=== PATIENT | female | born 1995 | race Caucasian/White ===

== ENCOUNTER 2019-09-30 18:16 | Outpatient (CLI) | payer BC ==
[~2019-09-30] VITALS: Ht 170.2 cm; Wt 80.9 kg
--- NOTE | 2019-09-30 18:23 | NUR ---
Arrived to unit ambulates self accompanied by mother. Pt c/o "contractions" Wt obtained and to room 315. Gowned and urine sample obtained. To bed and oriented to room, call light and surroundings. Plan of care reviewed with pt and mother.
[2019-09-30] MEDS ORDERED: PREN-37 PO (18:30)
[2019-09-30 18:37] VITALS: BP 126/77
[2019-09-30 18:45] VITALS: BP 126/77
--- NOTE | 2019-09-30 18:47 | NUR ---
AMNIO SWAB NEGATIVE.
--- NOTE | 2019-09-30 18:49 | NUR ---
SVE BY SANTOS CARLOS. 2 CM/50%/-3 NO PRESENTING PART NOTED.
--- NOTE | 2019-09-30 18:56 | NUR ---
BEDSIDE U/S PERFORMED WITH HEAD UNDER MOM'S RIGHT RIBCAGE. CONFIRMED BY 2ND RN Raya LEÓN.
--- NOTE | 2019-09-30 19:06 | NUR ---
DR. DWYER NOTIFIED OF PT'S ARRIVAL, C/O CTXS AND CTX PATTERN, REACTIVE FHR TRACING, CERVICAL EXAM OF 2CM/50% AND BREECH PRESENTATION. ORDERS RECEIVED.
[2019-09-30] MEDS ORDERED: TERBUTALINE INJ 1 MG/ML (BRETHINE) AMP ONE (19:07)
[2019-09-30 19:08] VITALS: BP 125/75
[2019-09-30] MEDS ORDERED: LACTATED RINGERS 1,000 ML IV SCH (19:15)
[2019-09-30] MEDS ORDERED: TERBUTALINE INJ 1 MG/ML (BRETHINE) AMP SC ONE ×2 (19:15→21:00)
--- NOTE | 2019-09-30 19:17 | NUR ---
BRETHINE 0.25 MG SUBQ IN LEFT UPPER ARM. SITE CLEAR.
--- NOTE | 2019-09-30 19:20 | NUR ---
UP TO THE BATHROOM PER PT REQUEST BEFORE IV STARTED.
--- NOTE | 2019-09-30 19:30 | NUR ---
REPORT GIVEN TO GENE HEARN RN.
[2019-09-30 19:44] VITALS: BP 126/77
--- NOTE | 2019-09-30 21:53 | NUR ---
D/C instructions given & explained, reassurance given, pt. verbalized understanding & signed. Copy of D/C to pt. Instructed pt. to call in am to sched to see tomorrow per 's orders. Pt. left [facility] ambulatory escorted by mother, to home via private vehicle.
--- NOTE | 2019-10-01 08:27 | Physician Query-Final Dx ---
VELIA LOZA 10/01/19 0827: Clinic Account Progress/Dx Physician Query: Please give diagnosis Please include # weeks gestation Date of Service Sep 30, 2019 at 18:16 ANN DWYER DO 10/01/19 0931: Clinic Account Progress/Dx Physician Query: Please give diagnosis DIAGNOSIS: Diagnosis Intrauterine at 35 weeks 2. Threatened Labor 3. Breech Presentation VELIA LOZA Oct 01, 2019 08:27 ANN DWYER DO Oct 01, 2019 09:31
== END 2019-09-30 21:53 | disposition home or self-care (01) ==
LOC: WSo 18:16 → LDRP 18:17 → WSo 21:53
PROVIDERS: ATTEND Obstetrics & Gynecology
DX: O47.03 False labor before 37 completed weeks of gestation, third trimester (principal); O32.1XX0 Maternal care for breech presentation, not applicable or unspecified; Z3A.35 35 weeks gestation of pregnancy
CPT/HCPCS: 96360; 96372; 99213

== ENCOUNTER → 2019-10-21 | Outpatient (CLI) | payer BC ==
[~2019-10-21] VITALS: Ht 167 cm; Wt 77.0 kg
[~2019-10-21] MED LIST: ACET-93 PO; DCS100C PO; IBUP-1780 PO; OXYC5TAB96 PO; PREN-37 PO
== END | disposition home or self-care (01) ==
LOC: PREOP 06:03
PROVIDERS: ATTEND Obstetrics & Gynecology
DX: Z01.818 Encounter for other preprocedural examination (principal)

== ENCOUNTER 2019-10-23 17:50 | Inpatient (IN) | payer BC ==
[2019-10-23] VITALS (8 sets, daily range): BP systolic 111–131; BP diastolic 68–81
[~2019-10-23] VITALS: Ht 167.7 cm; Wt 80.2 kg
--- NOTE | 2019-10-23 17:40 | NUR ---
JM HACKETT presented to unit from ED, accompanied by Significant Other, with c/o CONTRACTIONS. JM HACKETT weighed, gowned, voided, and to bed. EFHM and TOCO applied, VS taken. JM HACKETT oriented to bed controls, call light, TV, heat, and A/C controls.
[~2019-10-23 17:50] MED LIST changes: -ACET-93 PO; -DCS100C PO; -IBUP-1780 PO; -OXYC5TAB96 PO
--- NOTE | 2019-10-23 18:05 | NUR ---
Dr. Alford notified of patient's arrival, complaints, and exam. New orders received.
[2019-10-23] MEDS: LACTATED RINGERS 1,000 ML IV PRN ×2 (18:15→19:09)
[2019-10-23] MEDS ORDERED: OXYTOCIN PRE-MIX DRIP 1,000 ML IV ONE (18:24)
[2019-10-23] MEDS ORDERED: fentaNYL INJECTION 100 MCG/2 ML AMP ONE (18:25)
[2019-10-23 18:27] LABS: BASOPHILS % (AUTO) 0 % (0-10); EOSINOPHILS # (AUTO) 0.1 10^3/uL (0.0-0.3); EOSINOPHILS % (AUTO) 0 % (0-10); HEMATOCRIT 35 % (35-52); HEMOGLOBIN 12.1 G/DL (11.5-16.0); LYMPHOCYTES # (AUTO) 2.9 X 10^3 (1.0-4.0); LYMPHOCYTES % (AUTO) 21 % (12-44); MEAN CORPUSCULAR HEMOGLOBIN 30 PG (25-34); MEAN CORPUSCULAR HGB CONC 34 G/DL (32-36); MEAN CORPUSCULAR VOLUME 88 FL (80-99); MEAN PLATELET VOLUME 10.2 FL (7.4-10.4); MONOCYTES # (AUTO) 1.1 X 10^3 (0.0-1.0); MONOCYTES % (AUTO) 8 % (0-12); NEUTROPHILS # (AUTO) 9.9 X 10^3 (1.8-7.8); NEUTROPHILS % (AUTO) 71 % (42-75); PLATELET COUNT 340 10^3/uL (130-400); RED CELL DISTRIBUTION WIDTH 12.5 % (10.0-14.5); WHITE BLOOD COUNT 13.9 10^3/uL (4.3-11.0)
[2019-10-23] MEDS ORDERED: METOCLOPRAMIDE INJ 10 MG/2 ML (REGLAN) IV ONE (18:30)
[2019-10-23] MEDS ORDERED: ceFAZolin 2 GM IV Premixed 50 ML IV ONE (18:30)
[2019-10-23] MEDS ORDERED: CITRIC ACID/SOB CIT (BICITRA) 30 ML UDC PO ONE (18:30)
[2019-10-23] MEDS ORDERED: FAMOTIDINE 20MG/2ML IV (PEPCID) IV ONE (18:30)
[2019-10-23] MEDS ORDERED: CATHETER FLUSH 10 ML SYR IV PRN (18:30)
[2019-10-23] MEDS ORDERED: ROPIVACAINE 5MG/ML 30ML VIAL ONE (18:55)
--- OUTSIDE RECORDS SUMMARY | 2019-10-23 19:11 | XMS REPORT | Continuity of Care Document ---
Author Organization Unknown Address Unknown Phone Unavailable Allergies Active Description Code Type Severity Reaction Onset Reported/Identified Relationship to Patient Clinical Status Yes No Known Drug Allergies [id number] Drug Allergy Unknown N/A 09/30/2019 Medications There is no data. Problems Date Dx Coded Attending Type Code Diagnosis Diagnosed By 10/01/2019 SEALS DO, ANN E Ot O32.1XX0 MATERNAL CARE FOR BREECH PRESENTATION, U 10/01/2019 SEALS DO, ANN E Ot O47.0 3 FALSE LABOR BEFORE 37 COMPLETED WEEKS OF 10/01/2019 SEALS DO, ANN E Ot Z3A.3 5 35 WEEKS GESTATION OF 10/06/2019 SEALS DO, ANN E Ot O32.1XX0 MATERNAL CARE FOR BREECH PRESENTATION, U 10/06/2019 SEALS DO, ANN E Ot O47.0 3 FALSE LABOR BEFORE 37 COMPLETED WEEKS OF 10/06/2019 SEALS DO, ANN E Ot Z3A.3 5 35 WEEKS GESTATION OF Procedures There is no data. Results Test Result Range BLOOD TPYE/RH FACTOR - 03/12/19 11:05 ABO GROUP A NRG RH TYPE RH(D) POSITIVE NRG ANTIBODY SCREEN - 03/12/19 11:05 ANTIBODY SCREEN, RBC W/REFL ID, TITER AND AG NO ANTIBODIES DETECTED NRG SYPHILIS (RPR W/ REFLEX CONFIRMATION) - 03/12/19 11:05 RPR (DX) W/REFL TITER AND CONFIRMATORY TESTING NON-REACTIVE NON-REACTIVE HEP B SURFACE ANTIGEN - 03/12/19 11:05 HEPATITIS B SURFACE ANTIGEN NON-REACTIVE NON-REACTIVE RUBELLA IMMUNE STATUS - 03/12/19 11:05 RUBELLA ANTIBODY (IGG) 2.65 index NRG SUREPATH PAP RFX HPV mRNA E6/E7 - 16:06 CLINICAL INFORMATION: NRG LMP: NRG PREV. PAP: NRG PREV. BX: NRG SOURCE: Vagina NRG STATEMENT OF ADEQUACY: NRG INTERPRETATION/RESULT: NRG HOME ORGANIZER: NRG REVIEW HOME ORGANIZER: NRG COMMENT NRG QUAD SCREEN - 06/04/19 10:35 Maternal Weight 165 lbs NRG Est'd Date of Delivery 11/01/2019 NRG SOPHIA Determined by LMP NRG Mother's Ethnic Origin NRG Number of Fetuses 1 NRG Insulin Depend Diabetic NO NRG Repeat Specimen NO NRG Hx Of Neural Tube Defects NO NRG Prev Down Synd NO NRG Donor Egg NO NRG Donor Age: Egg Retrieval NOT GIVEN NRG INTERPRETATION: NRG Risk for ONTD 1 IN 4033 NRG Age Risk Down Syndrome 1 IN 1130 NRG BERTA Down Syndrome Risk <1 IN 5000 NRG BERTA Trisomy 18 Risk <1 IN 5000 NRG AFP, Serum 58.8 ng/mL NRG AFP MoM 1.36 NRG Estriol, Free 1.91 ng/mL NRG Estriol MoM 1.42 NRG hCG, Serum 13.34 IU/mL NRG hCG MoM 0.63 NRG Inhibin A, Dimeric 245 pg/mL NRG Inhibin A MoM 1.51 NRG COMMENTS: NRG COMMENT NRG Calc'd Gestational Age 18.6 weeks NRG Cigarette smoker NOT GIVEN NRG GLUCOSE KENDAL 1 HOUR - 08/14/19 09:56 GLUCOSE, POSTPRANDIAL/ 1 HOUR 122 mg/dL See Note: CBC - 08/14/19 09:56 WHITE BLOOD CELL COUNT 12.1 Thousand/uL 3.8-10.8 RED BLOOD CELL COUNT 3.69 Million/uL 3.8 0-5.10 HEMOGLOBIN 11.8 g/dL 11.7-15.5 HEMATOCRIT 33.7 % 35.0-45.0 MCV 91.3 fL 80.0-100.0 MCH 32.0 pg 27.0-33.0 MCHC 35.0 g/dL 32.0-36.0 RDW 11.9 % 11.0-15.0 PLATELET COUNT 290 Thousand/uL 140-400 MPV 10.3 fL 7.5-12.5 ABSOLUTE NEUTROPHILS 8942 cells/uL 1500- 7800 ABSOLUTE LYMPHOCYTES 2432 cells/uL 850-3 900 ABSOLUTE MONOCYTES 617 cells/uL 200-950 ABSOLUTE EOSINOPHILS 85 cells/uL 15-500 ABSOLUTE BASOPHILS 24 cells/uL 0-200 NEUTROPHILS 73.9 % NRG LYMPHOCYTES 20.1 % NRG MONOCYTES 5.1 % NRG EOSINOPHILS 0.7 % NRG BASOPHILS 0.2 % NRG SYPHILIS (RPR W/ REFLEX CONFIRMATION) - 08/14/19 09:56 RPR (DX) W/REFL TITER AND CONFIRMATORY TESTING NON-REACTIVE NON-REACTIVE CULTURE, GROUP B STREP (VAGINAL) - 09/30 09:59 STREPTOCOCCUS, GROUP B CULTURE SEE NOTE NRG Complete blood count (CBC) with automate d white blood cell (WBC) differential - 10/23/19 18:15 Blood leukocytes automated count (number/volume) 13.9 10*3/uL 4.3-11.0 Blood erythrocytes automated count (number/volume) 4.03 10*6/uL 4.35-5.85 Venous blood hemoglobin measurement (mass/volume) 12.1 g/dL 11.5-16.0 Blood hematocrit (volume fraction) 35 % 35-52 Automated erythrocyte mean corpuscular volume 88 [ foz_us] 80-99 Automated erythrocyte mean corpuscular h emoglobin (mass per erythrocyte) 30 pg 25-34 Automated erythrocyte mean corpuscular h emoglobin concentration measurement (mass/volume) 34 g/dL 32-36 Automated erythrocyte distribution width ratio 12. 5 % 10.0- 14.5 Automated blood platelet count (count/volume) 340 10*3/uL 130-400 Automated blood platelet mean volume measurement 10.2 [foz_us] 7.4-10.4 Automated blood neutrophils/100 leukocytes 71 % 42-75 Automated blood lymphocytes/100 leukocytes 21 % 12-44 Blood monocytes/100 leukocytes 8 % 0-12 Automated blood eosinophils/100 leukocytes 0 % 0-10 Automated blood basophils/100 leukocytes 0 % 0-10 Blood neutrophils automated count (number/volume) 9.9 10*3 1.8-7.8 Blood lymphocytes automated count (number/volume) 2.9 10*3 1.0-4.0 Blood monocytes automated count (number/volume) 1. 1 10*3 0.0-1.0 Automated eosinophil count 0.1 10*3/uL 0 .0-0.3 Automated blood basophil count (count/volume) 0.0 10*3/uL 0.0-0.1 Encounters ACCT No. Visit Date/Time Discharge Status Pt. Type Provider Facility Loc./Unit Complaint [id number] 10/22/2019 10:30:00 ACT Outpatient [facility] [id number] 10/01/2019 10:00:00 Document Registration [id number] 08/14/2019 09:15:00 Document Registration [id number] 06/04/2019 10:30:00 Document Registration [id number] 03/12/2019 10:45:00 Document Registration [id number] 09/30/2019 18:16:00 21:53:00 DIS Outpatient SEALS DO ANN E Via [facility] WSo CONTRACTIONS [id number] 10/27/2019 07:30:00 P EN Preadmit SEALS DO ANN E C -SECTION [id number] 10/23/2019 18:22:[address] Inpatient SEALS DO ANN E [facility] PCS BREECH IN LABOR [id number] 10/21/2019 06:03:[address] Outpatient SEALS DO ANN E Via [facility] PREOP
--- NOTE | 2019-10-23 19:16 | History & Physical-OB/GYN ---
History of Present Illness History of Present Illness Reason for visit/HPI Ms. Gonzalez, A0, at 39 2/7 weeks presents for onset of labor with a Breech Presentation Date of Admission Oct 23, 2019 at 18:22 Date Seen by a Provider: Oct 23, 2019 Time Seen by a Provider: 19:05 I consulted on this patient on 10/23/19 19:11 Attending Physician Sky Alford DO Admitting Physician Sky Alford DO Consult Allergies and Home Medications Allergies Coded Allergies: No Known Drug Allergies (Unverified , 09/30/19) Home Medications Vit/Iron Fumarate/FA 1 Each Tablet, 1 EACH PO DAILY, (Reported) Patient Home Medication List Home Medication List Reviewed: Yes Past Sznsyuc-Megfxd-Iqylig Hx Patient Social History Marrital Status: Number of Children: 2 Number of living children: 2 Employed/Student: employed Alcohol Use: Denies Use Recreational Drug Use: No Type Used: Cigarettes 2nd Hand Smoke Exposure: No Recent Hopitalizations: No Seasonal Allergies Seasonal Allergies: No Surgeries Yes (EARLOBE CYST) Respiratory No Cardiovascular No Neurological No Reproductive System Sexually Transmitted Disease: No HIV/AIDS: No Female Reproductive Disorders: Denies Genitourinary No Gastrointestinal Yes Gastroesophageal Reflux Musculoskeletal No Endocrine History of Endocrine Disorders: No HEENT History of HEENT Disorders: Yes (GLASSES) Loss of Vision: Denies Hearing Impairment: Denies Cancer No Psychosocial History of Psychiatric Problem: No Integumentary History of Skin or Integumenta: No Blood Transfusions History of Blood Disorders: No Adverse Reaction to a Blood Tr: No (N/A) Review of Systems Constitutional: see HPI Physical Exam Physical Exam Vital Signs Capillary Refill : Labs Laboratory Tests 10/23/19 18:15: White Blood Count 13.9H, Red Blood Count 4.03L, Hemoglobin 12.1, Hematocrit 35, Mean Corpuscular Volume 88, Mean Corpuscular Hemoglobin 30, Mean Corpuscular Hemoglobin Concent 34, Red Cell Distribution Width 12.5, Platelet Count 340, Mean Platelet Volume 10.2, Neutrophils (%) (Auto) 71, Lymphocytes (%) (Auto) 21, Monocytes (%) (Auto) 8, Eosinophils (%) (Auto) 0, Basophils (%) (Auto) 0, Wily trophils # (Auto) 9.9H, Lymphocytes # (Auto) 2.9, Monocytes # (Auto) 1.1H, Eosinophils # (Auto) 0.1, Basophils # (Auto) 0.0 General Appearance: No Apparent Distress, WD/WN Respiratory: Chest Non Tender, Lungs Clear, Normal Breath Sounds Cardiovascular: Regular Rate, Rhythm, No Murmur Abdominal: normal bowel sounds, non tender Gynecology/General: No urethral discharge, No lesions Labia: WNL Vagina: WNL Cervix: WNL Cervix Mass: soft Cervix OS: open (4 cm) Uterus: WNL, Enlarged (Gravid) Extremity: Normal Inspection, Non Tender, No Calf Tenderness Assessment/Plan Assessment and Plan Intrauterine at 39 2/7 weeks 2. Breech Presentation Plan: Proceed with an immediate . Procedure and its associated risks were discussed. All questions were answered. Admission Diagnosis Admission Status: Inpatient Order (span 2 midnights) Reason for Inpatient Admission: Intrauterine at 39 2/7 weeks with a Breech Presentation going for a SKY ALFORD DO Oct 23, 2019 19:16
[2019-10-23] MEDS ORDERED: PHENYLEPHRINE 100 MCG/ML 10 ML (ANESTHESIA) SYR ONE (19:23)
[2019-10-23] MEDS ORDERED: OXYTOCIN PRE-MIX DRIP 500 ML IV SCH (19:58)
[2019-10-23] MEDS ORDERED: TETANUS,DIPTH,PERTUSS P/F (BOOSTRIX) 0.5 ML VIAL IM SCH (20:00)
[2019-10-23] MEDS ORDERED: fentaNYL INJECTION 100 MCG/2 ML AMP IVP PRN (20:00)
[2019-10-23] MEDS ORDERED: MEASLES,MUMPS,RUBELLA 1 EA INJ SC SCH (20:00)
[2019-10-23] MEDS ORDERED: ONDANSETRON 4 MG/2 ML (SDV) Z0FRAN IVP PRN ×2 (20:00→20:45)
--- NOTE | 2019-10-23 20:08 | Cesarean Section Operative ---
Procedure Procedure Note Pre-operative Diagnosis: Susanne arguelles (22 /Para 3 /2 , Gestational Age (38 2/7 weeks) with [Breech Presentation in labor] Post-operative Diagnosis: same [] Procedure: [Primary] low transverse section Physician: ANN DWYER Learning And Development Associate: [None] Estimated blood loss: [400] mL Disposition: [Recovery Room] Findings: Viable [Male] infant, Apgars [8, 9], weight [8 lbs 11 oz], intact placenta, 3vc, normal appearing uterus, tubes, and ovaries. Indications:Susanne arguelles (22 /Para 3/2 ,Gestational Age (38 2/7wks) presenting for []. Procedure Details: The patient was seen in pre-op and the procedure was discussed with the patient in full, including the risks, benefits, and alternatives. All questions were answered. The patient was taken to the operating room and a time out was performed, verifying patient and procedure. After spinal anesthesia was placed by our anesthesia colleagues, the patient was placed in the dorsal supine with leftward tilt for uterine displacement.~ Her abdomen was then prepped and draped in the typical sterile fashion. A Pfannenstiel skin incision was made using a scalpel and carried down through the underlying fascia. The fascia was incised in the midline and tented up using Bev clamps. On both the inferior and superior fascia side the rectus muscle was dissected off bluntly and sharply using Whittington scissors. The peritoneum was identified and entered bluntly in the midline. This was then stretched laterally using manual strength. After entering the abdominal cavity and confirming lack of intraperitoneal adhesions, a large Dru retractor was placed and the lower uterine segment was visualized. A bladder flap was created with the use of Metzenbaum scissors.~ A scalpel was utilized to make a low transverse uterine incision. Amniotomy was performed with an Allis clamp with return of clear fluid. The infant's breech was grasped and brought to the level of the incision. Fundal pressure was applied and was delivered without difficulty. Mouth and nares were suctioned with bulb suction. After the umbilical cord was clamped and cut, the infant was handed off to the pediatric staff where NRP protocol was followed. A sample of cord blood was then obtained. The placenta was delivered intact via uterine massage. The uterus was e xteriorized and cleared of all clots and debris. The uterine incision was closed using 0 Vicryl in a running locked fashion. A second imbricated layer was placed using 0 Vicryl in a running fashion as well. The uterus was flexed forward and the posterior rectouterine space was inspected and cleared of all clots and debris. Again the hysterotomy site was examined and hemostasis was observed. The bilateral tubes and ovaries appeared normal. The uterus was placed back into the abdominal cavity and abdominal gutters were cleared of all clots and debris. A final check of the uterine incision showed it to be hemostatic. The peritoneum was closed using 3-0 Vicryl in a running fashion. The fascia was closed with 0 Vicryl in a running fashion. The subcutaneous space was hemostatic, and irrigated. The subcutaneous space was closed with 3-0 Plain Gut in several single interrupted stitches. The skin was then closed using 4-0 Monocryl in a running subcuticular fashion. The skin edges were reapproximated together and were hemostatic. A pressure dressing was applied. All sponge, lap and needle counts were correct x 3 at the end of the procedure per nursing. Vitals - Labs Vital Signs - I&O Vital Signs Date Time Temp Pulse Resp B/P (MAP) Pulse Ox O2 Delivery O2 Flow Rate FiO2 10/23/19 17:49 36.4 118 18 97 Room Air Labs Laboratory Tests 10/23/19 18:15: White Blood Count 13.9H, Red Blood Count 4.03L, Hemoglobin 12.1, Hematocrit 35, Mean Corpuscular Volume 88, Mean Corpuscular Hemoglobin 30, Mean Corpuscular Hemoglobin Concent 34, Red Cell Distribution Width 12.5, Platelet Count 340, Mean Platelet Volume 10.2, Neutrophils (%) (Auto) 71, Lymphocytes (%) (Auto) 21, Monocytes (%) (Auto) 8, Eosinophils (%) (Auto) 0, Basophils (%) (Auto) 0, Neutrophils # (Auto) 9.9H, Lymphocytes # (Auto) 2.9, Monocytes # (Auto) 1.1H, Eosinophils # (Auto) 0.1, Basophils # (Auto) 0.0 ANN DWEYR DO Oct 23, 2019 20:07
[2019-10-23] MEDS ORDERED: HYDROmorphone 2 MG/ML VIAL (DILAUDID) IV ONE (20:45)
[2019-10-23] MEDS ORDERED: ZOLPIDEM 5 MG (AMBIEN) TAB PO SCH (21:00)
--- NOTE | 2019-10-23 21:10 | NUR ---
Patient to PP room 308 via bed, escorted by Carmen DISTRIBUTION ANALYST. Bedside report received. Patient oriented to room and call light, call light within reach. POC reviewed.
[2019-10-23] MEDS: DOCUSATE SODIUM 100 MG (COLACE) CAP PO SCH (21:30)
[2019-10-23] MEDS: KETOROLAC 30 MG/ML VIAL IV SCH (21:30)
[2019-10-23] MEDS ORDERED: CATHETER FLUSH 10 ML SYR IV SCH (22:00)
[2019-10-24 01:00] VITALS: BP 126/69
[2019-10-24] MEDS: METOCLOPRAMIDE 10 MG (REGLAN) TAB PO SCH ×3 (01:30→14:02)
[2019-10-24] MEDS: ACETAMINOPHEN 500 MG TAB (TYLENOL) PO SCH ×4 (01:30→20:35)
--- NOTE | 2019-10-24 04:00 | NUR ---
Patient assisted up to bathroom at this time. Positive void of 400mL achieved at this time. Pericare per patient. Patient stable on feet when ambulating. Back to bed without issue. SCDs back on calves bilaterally. Call light within reach.
[2019-10-24] MEDS: KETOROLAC 30 MG/ML VIAL IV SCH ×2 (04:01→10:07)
[2019-10-24 04:11] VITALS: BP 110/63
[2019-10-24] MEDS ORDERED: BISACODYL 10 MG SUPP (DULCOLAX) PR NR (05:00)
[2019-10-24] MEDS ORDERED: MILK OF MAGNESIA 400 MG/5 ML 30 ML UDC PO NR ×2 (05:00→10:00)
[2019-10-24 05:20] LABS: BASOPHILS % (AUTO) 0 % (0-10); EOSINOPHILS % (AUTO) 0 % (0-10); HEMATOCRIT 30 % (35-52); HEMOGLOBIN 10.2 G/DL (11.5-16.0); LYMPHOCYTES % (AUTO) 11 % (12-44); MEAN CORPUSCULAR HEMOGLOBIN 30 PG (25-34); MEAN CORPUSCULAR HGB CONC 34 G/DL (32-36); MEAN CORPUSCULAR VOLUME 88 FL (80-99); MEAN PLATELET VOLUME 9.6 FL (7.4-10.4); MONOCYTES # (AUTO) 1.5 X 10^3 (0.0-1.0); MONOCYTES % (AUTO) 9 % (0-12); NEUTROPHILS # (AUTO) 13.8 X 10^3 (1.8-7.8); NEUTROPHILS % (AUTO) 80 % (42-75); PLATELET COUNT 249 10^3/uL (130-400); RED CELL DISTRIBUTION WIDTH 12.3 % (10.0-14.5); WHITE BLOOD COUNT 17.3 10^3/uL (4.3-11.0)
--- NOTE | 2019-10-24 07:00 | NUR ---
Respiratory to patient room to review IS.
--- NOTE | 2019-10-24 08:25 | NUR ---
DR. DWYER HERE TO SEE PT. PLAN FOR DISCHARGE. ABDOMINAL DRESSING REMOVED.
[2019-10-24] MEDS: DOCUSATE SODIUM 100 MG (COLACE) CAP PO SCH (08:27)
[2019-10-24 08:30] VITALS: BP 120/68
--- NOTE | 2019-10-24 08:30 | NUR ---
A.M. ASSESSMENT COMPLETED. VSS. CARING FOR IN ROOM. INSTRUCTED ON INCENTIVE SPIROMETRY.
[2019-10-24] MEDS ORDERED: ACET-93 PO (08:38)
[2019-10-24] MEDS ORDERED: DCS100C PO (08:38)
[2019-10-24] MEDS ORDERED: IBUP-1780 PO (08:38)
[2019-10-24] MEDS ORDERED: OXYC5TAB96 PO (08:38)
--- NOTE | 2019-10-24 08:44 | Discharge Summary ---
Diagnosis/Chief Complaint Date of Admission Oct 23, 2019 at 18:22 Date of Discharge October 24, 2019 Discharge Date: Oct 24, 2019 Discharge Time: 19:00 Admission Diagnosis Admission Diagnosis Intrauterine at 38 2/7 weeks in labor 2. Breech Presentation Discharge Diagnosis Intrauterine at 38 2/7 weeks in labor--delivered via 2. Breech Presentation Reason Hospital Visit Ms. Gonzalez, A0, at 39 2/7 weeks presents for onset of labor with a Breech Presentation Discharge Summary Hospital Course Was the Problem List Reviewed?: Yes Hospital Course Ms. Gonzalez, A0, at 38 2/7 weeks presented to Labor & Delivery in active labor (4 cm) with a Breech Presentation. She was taken for a Primary Low Transverse . The surgery was performed without complications. Postoperatively, she was given pain management and comfort care. Postoperative Day #1 found Ms. Gonzalez voiding freely, ambulating, tolerating Clear Liquids and controlling her pain with oral medications. Her bowel sounds were good, but no bowel movement. Once she has a bowel movement and tolerates a Regular Diet I will discharge her to home. Her vital signs remained stable throughout her hospitalization. She will be discharged to home with instructions, prescriptions and a follow up appointment. Labs Laboratory Tests 10/23/19 18:15: White Blood Count 13.9H, Red Blood Count 4.03L, Neutrophils # (Auto) 9.9H, Monocytes # (Auto) 1.1H 10/24/19 05:12: White Blood Count 17.3H, Red Blood Count 3.40L, Neutrophils # (Auto) 13.8H, Monocytes # (Auto) 1.5H, Hemoglobin 10.2L, Hematocrit 30L, Neutrophils (%) (Auto) 80H, Lymphocytes (%) (Auto) 11L Procedures None. Discharge Physical Examination Allergies: Coded Allergies: No Known Drug Allergies (Unverified , 09/30/19) Vitals & I&Os Vital Signs Date Time Temp Pulse Resp B/P (MAP) Pulse Ox O2 Delivery O2 Flow Rate FiO2 10/24/19 04:11 36.7 98 18 110/63 (79) Room Air 10/24/19 01:00 97 General Appearance: Alert, Oriented X3, Cooperative HEENT: Atraumatic Respiratory: Clear to Auscultation, Normal Air Movement Cardiovascular: Regular Rate, No Murmurs Abdominal: Normal Bowel Sounds, Soft Extremities: No Clubbing, No Cyanosis Skin: No Rashes Neuro: Normal Gait, Normal Speech Psych/Mental Status: Mental Status NL Discharge Home Medications Reviewed and agree with Discharge Medication list on patient's Discharge Instruction sheet Instructions to Patient/Family Please see electronic discharge instructions given to patient. Clinical Quality Measures DVT/VTE Risk/Contraindication: Risk Factor Score Per Nursin RFS Level Per Nursing on Admit: 2=Moderate ANN DWYER DO Oct 24, 2019 08:44
--- NOTE | 2019-10-24 08:51 | NUR ---
OXYIR 5 MG P.O. FOR C/O ABD PAIN.
--- NOTE | 2019-10-24 10:00 | NUR ---
SHOWERED WITHOUT PROBLEMS. GOING WELL.
--- NOTE | 2019-10-24 11:00 | NUR ---
AMBULATING IN THE [place]AZ WHILE SPOUSE PUSHES BABY IN CRIB. PT KNOWS TO AMBULATE AT LEAST 4X TODAY.
--- NOTE | 2019-10-24 11:25 | Anesthesia-Regional Post-Op ---
Regional Patient Condition Mental Status: Alert, Oriented x3 Circulation: Same as Pre-Op Headache: Absent Sensation: Full Recovery Motor Block: Absent Post Op Complications Complications None Follow Up Care/Instructions Patient Instructions None needed. Anesthesia/Patient Condition Patient is doing well, no complaints, stable vital signs, no apparent adverse anesthesia problems. No complications reported per nursing. D/C home per [facility] Criteria: No ODETTE MALDONADO CRNA Oct 24, 2019 11:24
[2019-10-24 12:45] VITALS: BP 115/66
--- NOTE | 2019-10-24 14:55 | NUR ---
TDAP GIVEN IM IN LEFT DELTOID. SITE CLEAR.
--- NOTE | 2019-10-24 15:47 | NUR ---
DR. DWYER NOTIFIED OF NO BM. ORDER RECEIVED.
[2019-10-24 16:00] VITALS: BP 116/68
[2019-10-24] MEDS ORDERED: MAGNESIUM CITRATE 300 ML BTL PO NR (16:00)
--- NOTE | 2019-10-24 16:06 | NUR ---
MAG CITRATE 150MLS GIVEN P.O. PER DR. DWYER ORDER.
[2019-10-24] MEDS ORDERED: IBUPROFEN 800 MG (MOTRIN) TAB PO ONE (16:12)
[2019-10-24] MEDS ORDERED: IBUPROFEN 800 MG (MOTRIN) TAB PO SCH (16:30)
--- NOTE | 2019-10-24 18:03 | NUR ---
PT HAD A SMALL LOOSE BM. ORDER TO ALLOW REGULAR DIET PER DR. DWYER.
--- NOTE | 2019-10-24 18:30 | NUR ---
EATING STORK MEAL. CARING FOR INFANT IN ROOM. GOOD INTERACTION NOTED.
--- NOTE | 2019-10-24 20:30 | NUR ---
DISCHARGE INSTRUCTIONS REVIEWED WITH COPY TO PT. RX FOR OXYIR FILLED AT [facility] AND OTHER RXS CALLED TO [facility] PER PT REQUEST. (TYLENOL, COLACE, IBUPROFEN). STATES UNDERSTANDING OF ALL INSTRUCTIONS AND NEED TO F/U INSTRUCTED. WAITING FOR INFANT'S 24 HOUR LABS TO SEE IF GETTING TO GO HOME TONIGHT OR MOM TO ROOMING IN.
[2019-10-24 20:35] VITALS: BP 117/70
--- NOTE | 2019-10-24 22:05 | NUR ---
Pt. wheeled down to personal vehicle by nurse. No s/s of distress.
[2019-10-25] MEDS ORDERED: IBUPROFEN 800 MG (MOTRIN) TAB PO SCH (20:00)
== END 2019-10-24 22:05 | disposition home or self-care (01) | DRG 788 ==
LOC: WSo 17:50 → LDRP 17:50 → WSo 18:22 → LDRP 18:22
PROVIDERS: ADMIT Obstetrics & Gynecology; ATTEND Obstetrics & Gynecology
PROC: 10D00Z1 Extraction of Products of Conception, Low, Open Approach (ICD-10-PCS; principal; 2019-10-23 19:12)
DX: O64.1XX0 Obstructed labor due to breech presentation, not applicable or unspecified (principal); O99.62 Diseases of the digestive system complicating childbirth; K21.9 Gastro-esophageal reflux disease without esophagitis; O99.334 Smoking (tobacco) complicating childbirth; F17.210 Nicotine dependence, cigarettes, uncomplicated; Z3A.38 38 weeks gestation of pregnancy; Z37.0 Single live birth; Z23 Encounter for immunization
CPT/HCPCS: 36415; 85025; 86850; 86900; 86901; 90715; 94664; 99212

== ENCOUNTER → 2022-02-19 | Outpatient (CLI) | payer BC ==
[~2022-02-19] MED LIST changes: +ACET-93 PO; +DOCU-239 PO; +IBUP-1780 PO; +OXC5T PO
--- NOTE | 2022-02-19 17:48 | Diagnostic Imaging Report ---
INDICATION: Supervision of normal . Anatomy scan. TECHNIQUE: Multiple real-time grayscale images were obtained over the gravid uterus. COMPARISON: None FINDINGS: A single live intrauterine gestation is present in cephalic presentation. heart tones measure 158 BPM. The placenta is anterior and not low lying. The cervical length measures 2.7 cm. No evidence of funneling. The BALAJI visually is normal, although no dedicated measurements were provided. The kidneys, bladder, stomach, brain, four-chamber heart, three-vessel cord, spine, and cord insertion are visualized and have a normal appearance. Views of the adnexa are unremarkable. No adnexal mass or free fluid. Biometrical measurements are as follows: Biparietal 4.81 cm, age 20 weeks 4 days. Head circumference 17.18 cm, age 19 weeks 6 days. Abdominal circumference 13.78 cm, age 19 weeks 2 days. Femur length 3.21 cm, age 20 weeks 0 days. Sonographic estimate age: 20 weeks 0 days. Sonographic estimated date of delivery: 07/09/2022. Estimated Weight: 303 gm (+/- 44 gm). LMP percentile: 26%. heart rate: 158 beats per minute. number: 1 of 1. IMPRESSION: 1. Single live intrauterine gestation measuring 20 weeks 0 days with an estimated due date of 07/09/2022. These are concordant with the clinical dates. 2. No anatomic abnormalities are identified. Dictated by: Dictated on workstation # [id number]
== END ==
LOC: RAD 12:00
PROVIDERS: ATTEND Nurse Practitioner Women's Health
DX: Z34.02 Encounter for supervision of normal first pregnancy, second trimester (principal); Z3A.20 20 weeks gestation of pregnancy
CPT/HCPCS: 76805

== ENCOUNTER 2022-05-24 18:35 | Outpatient (CLI) | payer OTHER ==
[~2022-05-24] VITALS: Ht 167.7 cm; Wt 86.2 kg
[2022-05-24 19:04] LABS: BILIRUBIN,URINE NEGATIVE (NEGATIVE); CLARITY,URINE CLEAR; COLOR,URINE YELLOW; GLUCOSE, URINE (UA) 1+ (NEGATIVE); KETONES,URINE NEGATIVE (NEGATIVE); LEUKOCYTE ESTERASE ,URINE NEGATIVE (NEGATIVE); NITRITE,URINE NEGATIVE (NEGATIVE); PH,URINE 7.5 (5-9); PROTEIN,URINE NEGATIVE (NEGATIVE)
[2022-05-24 19:11] LABS: BACTERIA,URINE NEGATIVE /HPF; SQUAMOUS EPITHELIAL CELL,UR 0-2 /HPF
[2022-05-24 19:39] VITALS: BP 133/77
--- NOTE | 2022-05-28 08:13 | Physician Query-Final Dx ---
Clinic Account Progress/Dx Physician Query: Please give diagnosis Please include # weeks gestation Date of Service May 24, 2022 at 18:35 DAGO,JulMay 28, 2022 08:13
== END 2022-05-24 19:37 ==
LOC: WSo 18:35
PROVIDERS: ATTEND Obstetrics & Gynecology
DX: O47.03 False labor before 37 completed weeks of gestation, third trimester (principal); Z3A.33 33 weeks gestation of pregnancy
CPT/HCPCS: 81000; G0463; 99212

== ENCOUNTER 2022-06-29 23:22 | Outpatient (CLI) | payer OTHER, MEDICAID ==
[~2022-06-29] VITALS: Ht 167.7 cm; Wt 85.9 kg
[2022-06-29 23:40] VITALS: BP 119/70
[2022-06-29 23:41] LABS: BILIRUBIN,URINE NEGATIVE (NEGATIVE); CLARITY,URINE CLEAR; COLOR,URINE YELLOW; GLUCOSE, URINE (UA) NEGATIVE (NEGATIVE); KETONES,URINE 1+ (NEGATIVE); LEUKOCYTE ESTERASE ,URINE NEGATIVE (NEGATIVE); NITRITE,URINE NEGATIVE (NEGATIVE); PROTEIN,URINE NEGATIVE (NEGATIVE)
[2022-06-29 23:51] VITALS: BP 117/67
[2022-06-29] MEDS ORDERED: PREN-142 PO (23:54)
[2022-06-30 00:04] LABS: BACTERIA,URINE TRACE /HPF
--- NOTE | 2022-06-30 08:38 | OB Triage Report ---
Standard Progress Note Progress Notes/Assess & Plan Date Seen by a Provider: Jun 29, 2022 Time Seen by a Provider: 23:50 Expected Date of Delivery: Jun 08, 2022 Gestational Age in Weeks: 38 Gestational Age in Days: 4 LMP/SOPHIA Comment: tyPatient is @ 38 4/7 weeks upon presentation to L&D for labor check. Patient with two prior vaginal deliveries, last delivery was a for breech three yrs ago per RN. Patient seen in office earlier this week by Dr. Olsen and told 3 cm dilated. Patient had called prior to coming into L&D inquiring about feasibility of having a . In speaking with RN on duty, I was informed that some providers do here, others do not, it is provider dependent. Also, VBACs not routinely done on weekends due to lack of ANS support. I also have not met or counseled/consented patient regarding risks of TOLAC and for all above reasons I did not recommend/offer a TOLAC to this patient. I advised she go to other facility that does VBACs if that is what she desires ( I was told this would be in [place], and a little [address] patient). If undelivered over the weekend, instructed to call Dr. Olsen's office early next week to further discuss. Patient decided to come here for labor check. Per RN, patient on monitor for 45 minutes and cervix still 3 cm dilated, unchanged from office exam, with mild contractions q6 minutes. Category I FHR tracting. UA negative. Progress/Assessment & Plan A/P: 38 4/7 weeks on 06/29/22 Contractions, not in labor Prior Patient released to home with labor and kick count precautions. Advised would not recommend TOLAC over the weekend given above reasons. Patient advised to go to nearest facility that does VBACs if she thinks she is in labor and desires TOLAC over weekend. Certainly she can come here, go to nearest facility in an emergency situation. Follow up early next week with Dr. Olsen to discuss possible if undelivered over the weekend. Final Diagnosis 38 weeks Contractions, not in labor Prior . ODETTE BERG DO Jun 30, 2022 08:38
== END 2022-06-30 00:29 | disposition home or self-care (01) ==
LOC: WSo 23:22 → LDRP 23:24 → WSo 06-30 00:29
PROVIDERS: ATTEND Obstetrics & Gynecology
DX: O62.9 Abnormality of forces of labor, unspecified (principal); Z3A.38 38 weeks gestation of pregnancy
CPT/HCPCS: 81000; 99213

== ENCOUNTER 2022-07-09 05:59 | Inpatient (IN) | payer OTHER, MEDICAID ==
[2022-07-09] VITALS (54 sets, daily range): BP systolic 104–147; BP diastolic 56–88
[~2022-07-09] VITALS: Ht 167.7 cm; Wt 87.3 kg
[~2022-07-09 05:59] MED LIST changes: +PREN-142 PO
[2022-07-09] MEDS ORDERED: MINERAL OIL 30 ML UDC TOP PRN (06:15)
[2022-07-09 06:34] LABS: BASOPHILS # (AUTO) 0.1 10^3/uL (0.0-0.1); BASOPHILS % (AUTO) 1 % (0-10); EOSINOPHILS # (AUTO) 0.1 10^3/uL (0.0-0.3); EOSINOPHILS % (AUTO) 1 % (0-10); HEMATOCRIT 33 % (35-52); HEMOGLOBIN 11.4 g/dL (11.5-16.0); LYMPHOCYTES # (AUTO) 3.3 10^3/uL (1.0-4.0); LYMPHOCYTES % (AUTO) 26 % (12-44); MEAN CORPUSCULAR HEMOGLOBIN 30 pg (25-34); MEAN CORPUSCULAR HGB CONC 34 g/dL (32-36); MEAN CORPUSCULAR VOLUME 88 fL (80-99); MEAN PLATELET VOLUME 10.1 fL (9.0-12.2); MONOCYTES # (AUTO) 1.1 10^3/uL (0.0-1.0); MONOCYTES % (AUTO) 9 % (0-12); NEUTROPHILS # (AUTO) 7.8 10^3/uL (1.8-7.8); NEUTROPHILS % (AUTO) 62 % (42-75); PLATELET COUNT 325 10^3/uL (130-400); WHITE BLOOD COUNT 12.7 10^3/uL (4.3-11.0)
[2022-07-09 06:49] LABS: BILIRUBIN,URINE NEGATIVE (NEGATIVE); CLARITY,URINE CLEAR; COLOR,URINE YELLOW; GLUCOSE, URINE (UA) NEGATIVE (NEGATIVE); KETONES,URINE NEGATIVE (NEGATIVE); LEUKOCYTE ESTERASE ,URINE NEGATIVE (NEGATIVE); NITRITE,URINE NEGATIVE (NEGATIVE); PH,URINE 6.5 (5-9); PROTEIN,URINE NEGATIVE (NEGATIVE)
[2022-07-09] MEDS: D5 LR IV SOLUTION 1,000 ML IV SCH ×2 (06:58→14:24)
[2022-07-09 07:11] LABS: BACTERIA,URINE NEGATIVE /HPF; SQUAMOUS EPITHELIAL CELL,UR 0-2 /HPF; WBC,URINE RARE /HPF
[2022-07-09] MEDS ORDERED: fentaNYL 2 mcg/ml BUPIVA 0.125 100 ML ONE (07:26)
[2022-07-09] MEDS ORDERED: OXYTOCIN PRE-MIX DRIP 500 ML IV SCH (08:30)
[2022-07-09] MEDS ORDERED: OXYTOCIN PRE-MIX DRIP 500 ML IV ONE (08:38)
[2022-07-09] MEDS ORDERED: NALOXONE 0.4 MG/ML 1 ML (NARCAN) VIAL IV PRN ×3 (12:30→16:45)
[2022-07-09] MEDS ORDERED: diphenhydrAMINE 50 MG/ML INJ (BENADRYL) IV PRN (12:30)
[2022-07-09] MEDS ORDERED: METOCLOPRAMIDE INJ 10 MG/2 ML (REGLAN) IV PRN (12:30)
[2022-07-09] MEDS ORDERED: ONDANSETRON 4 MG/2 ML (SDV) Z0FRAN IV PRN (12:30)
[2022-07-09] MEDS ORDERED: fentaNYL 2 mcg/ml BUPIVA 0.125 100 ML EPI SCH (12:30)
[2022-07-09] MEDS ORDERED: LACTATED RINGERS 1,000 ML IV SCH (12:30)
[2022-07-09] MEDS ORDERED: CATHETER FLUSH 10 ML SYR IV SCH ×2 (14:00→22:00)
[2022-07-09] MEDS: OXYTOCIN PRE-MIX DRIP 500 ML IV SCH ×2 (16:25→16:54)
[2022-07-09] MEDS ORDERED: METHYLERGONOVINE 0.2 MG/ML (METHERGINE) AMP ONE (16:28)
--- NOTE | 2022-07-09 16:39 | History & Physical-OB ---
OB - Chief Complaint & HPI Date/Time Date of Admission: Date of Admission: Jul 09, 2022 at 05:59 Date seen by a Provider: Jul 09, 2022 Time Seen by a Provider: 08:00 Chief Complaint/History OB-Reason for Admission/Chief: Induction of Labor Hx : 4 Hx Para: 3 Expected Date of Delivery: Jul 09, 2022 Gestational Age in Weeks: 40 Gestational Age in Days: 0 Indication for induction: post dates Other reason for admission: Patient here for IOL due to 40 weeks, and desired. Admission Nurse Assessment Rev: Yes Allergies and Home Medications Allergies Coded Allergies: No Known Drug Allergies (Unverified , 09/30/19) Patient Home Medication List Home Medication List Reviewed: Yes Vit No.124/Iron/FA ( Vitamin Tablet) 27 Mg Iron-800 Mcg Tablet, 1 EACH PO, (Reported) Entered as Reported by: CONSTANZA MONDRAGON on 06/29/22 6371 OB - History Hx of Present Care: Yes Ultrasounds: Normal mid trimester US Obstetrical Complications: None Medical Complications: None Delivery History Adverse Rxn to Tranfusion: No (N/A) Patient Past Medical History n/a Social History/Family History 2nd Hand Smoke Exposure: No Immunizations Influenza Vaccine Up-to-Date: No; Not Current Hepatitis A: Yes Hepatitis B: Yes OB - Admission Exam Physical Exam Vitals: Vital Signs 07/09/22 07/09/22 07/09/22 09:40 15:25 15:40 Temp 36.3 Pulse 79 Resp 18 B/P (MAP) 123/77 (92) Pulse Ox 97 O2 Delivery Room Air HEENT: NCAT Heart: Rhythm Normal Lungs: Clear Abdomen: Gravid Extremities: Normal Reflexes: Normal Cervical Dilatation: 3cm Effacement: 75% Station: -1 Membranes: Intact Heart Rate: 130's Accelerations: Accelerations Present Decelerations: No Decelerations Short Term Variability: Present Care Home Variability: Average (6-25) Contractions on Admission: 6-10 Minutes Apart Intensity: Moderate Labs Laboratory Tests Test 07/09/22 06:15 Range/Units White Blood Count 12.7 H 4.3-11.0 10^3/uL Red Blood Count 3.77 L 3.80-5.11 10^6/uL Hemoglobin 11.4 L 11.5-16.0 g/dL Hematocrit 33 L 35-52 % Mean Corpuscular Volume 88 80-99 fL Mean Corpuscular Hemoglobin 30 25-34 pg Mean Corpuscular Hemoglobin Concent 34 32-36 g/dL Red Cell Distribution Width 13.0 10.0-14.5 % Platelet Count 325 130-400 10^3/uL Mean Platelet Volume 10.1 9.0-12.2 fL Immature Granulocyte % (Auto) 2 % Neutrophils (%) (Auto) 62 42-75 % Lymphocytes (%) (Auto) 26 12-44 % Monocytes (%) (Auto) 9 0-12 % Eosinophils (%) (Auto) 1 0-10 % Basophils (%) (Auto) 1 0-10 % Neutrophils # (Auto) 7.8 1.8-7.8 10^3/uL Lymphocytes # (Auto) 3.3 1.0-4.0 10^3/uL Monocytes # (Auto) 1.1 H 0.0-1.0 10^3/uL Eosinophils # (Auto) 0.1 0.0-0.3 10^3/uL Basophils # (Auto) 0.1 0.0-0.1 10^3/uL Immature Granulocyte # (Auto) 0.3 H 0.0-0.1 10^3/uL Urine Color YELLOW Urine Clarity CLEAR Urine pH 6.5 5-9 Urine Specific [place] 1.015 L 1.016-1.022 Urine Protein NEGATIVE NEGATIVE Urine Glucose (UA) NEGATIVE NEGATIVE Urine Ketones NEGATIVE NEGATIVE Urine Nitrite NEGATIVE NEGATIVE Urine Bilirubin NEGATIVE NEGATIVE Urine Urobilinogen 0.2 < = 1.0 MG/DL Urine Leukocyte Esterase NEGATIVE NEGATIVE Urine RBC (Auto) NEGATIVE NEGATIVE Urine RBC NONE /HPF Urine WBC RARE /HPF Urine Squamous Epithelial Cells 0-2 /HPF Urine Crystals NONE /LPF Urine Bacteria NEGATIVE /HPF Urine Casts NONE /LPF Urine Mucus NEGATIVE /LPF Urine Culture Indicated NO OB - Assessment/Plan/Diagnosis Assessment Assessment: induction of labor Admission Dx 26 yo @ 40 weeks IOL GBS neg Admission Status: Inpatient Order (span 2 midnights) Reason for Inpatient Admission: IOL at 40 weeks Plan Plan: Induction Induction Method: AROM JEREMIE LEE DO Jul 09, 2022 16:39
--- NOTE | 2022-07-09 16:44 | OB Labor & Delivery Record ---
L&D History Date of Service Date of Service: Jul 09, 2022 History Expected Date of Delivery: Jul 09, 2022 Gestational Age in Weeks: 40 Hx : 4 Hx Para: 3 Complications Events: Routine care Operative Indications (Cesarea: N/A-Vaginal Delivery Intrapartal Events: None L&D Stage1 Stage One Onset of Labor - Date: Jul 09, 2022 Monitors and Tracing Monitor Mode: External Heart Rate: 125 Station: -2 Vaccine Customer Representative Variability: Moderate (11-25) Short Term Variability: Present Presentation: Vertex Vital Signs VS - Last 72 Hours, by Label 07/09/22 07/09/22 07/09/22 07/09/22 07:17 07:45 07:48 07:54 Temp 36.3 Pulse 90 86 105 92 Resp 18 18 18 18 B/P (MAP) 147/80 (102) 137/88 (104) 141/84 (103) Pulse Ox 97 97 99 97 O2 Delivery Room Air Room Air Room Air Room Air 07/09/22 07/09/22 07/09/22 07/09/22 07:57 08:00 08:03 08:07 Pulse 98 85 89 96 Resp 18 18 18 18 B/P (MAP) 139/83 (101) 141/82 (101) 135/82 (99) 140/84 (102) Pulse Ox 97 96 97 O2 Delivery Room Air Room Air Room Air Room Air 07/09/22 07/09/22 07/09/22 07/09/22 08:10 08:17 08:24 08:27 Pulse 90 95 88 92 Resp 18 18 18 18 B/P (MAP) 144/86 (105) 145/87 (106) 137/88 (104) 134/85 (101) Pulse Ox 97 97 97 97 O2 Delivery Room Air Room Air Room Air Room Air 07/09/22 07/09/22 07/09/22 07/09/22 08:33 08:37 08:55 09:10 Temp 36.3 Pulse 83 81 76 85 Resp 18 18 18 18 B/P (MAP) 133/75 (94) 139/80 (99) 134/71 (92) 125/70 (88) Pulse Ox 97 97 97 96 O2 Delivery Room Air Room Air Room Air Room Air 07/09/22 07/09/22 07/09/22 07/09/22 09:25 09:40 10:10 10:25 Pulse 85 78 75 82 Resp 18 18 18 18 B/P (MAP) 125/70 (88) 122/68 (86) 116/66 (83) 113/65 (81) Pulse Ox 96 97 O2 Delivery Room Air Room Air Room Air Room Air 07/09/22 07/09/22 07/09/22 07/09/22 10:40 10:55 11:10 11:25 Temp 36.3 Pulse 72 76 73 84 Resp 18 18 18 18 B/P (MAP) 108/61 (77) 104/62 (76) 104/57 (73) 139/82 (101) O2 Delivery Room Air Room Air Room Air Room Air 07/09/22 07/09/22 07/09/22 07/09/22 11:40 11:55 12:10 12:25 Pulse 74 87 73 79 Resp 18 18 18 18 B/P (MAP) 131/70 (90) 129/73 (91) 130/70 (90) 132/70 (90) O2 Delivery Room Air Room Air Room Air Room Air 07/09/22 07/09/22 07/09/22 07/09/22 12:40 12:55 13:10 13:25 Temp 35.9 Pulse 71 74 80 74 Resp 18 18 18 18 B/P (MAP) 113/66 (82) 115/74 (88) 119/65 (83) 125/71 (89) O2 Delivery Room Air Room Air Room Air Room Air 07/09/22 07/09/22 07/09/22 07/09/22 13:40 13:55 14:10 14:25 Pulse 73 75 76 78 Resp 18 18 18 18 B/P (MAP) 119/70 (86) 124/72 (89) 119/68 (85) 121/71 (88) O2 Delivery Room Air Room Air Room Air Room Air 07/09/22 07/09/22 07/09/22 07/09/22 14:40 14:55 15:10 15:25 Temp 36.3 Pulse 80 69 68 71 Resp 18 18 18 18 B/P (MAP) 113/66 (82) 116/65 (82) 110/68 (82) 112/68 (83) O2 Delivery Room Air Room Air Room Air Room Air 07/09/22 15:40 Pulse 79 Resp 18 B/P (MAP) 123/77 (92) O2 Delivery Room Air Rupture of Membranes Spontaneous Ruture of Membrane: No Amniotic Membrane Rupture Time: 0849 Amniotic Membrane Fluid Desc.: Clear Vaginal Bleeding Description: Normal Show Induction/Anesthesia Epidural Cath Placement - Time: 0746 Progress/Notes Patient admitted for IOL. AROM preformed after epidural. Pitocin augmentation started and patient progressed with max dose of 8 mu to complete and + 2 station. L&D Stage2 Stage Two Stage II Date: Jul 09, 2022 Monitors and Tracing Monitor Mode: External Heart Rate: 125 Monitor Accelerations: Uniform Monitor Decelerations: Variable Vaccine Customer Representative Variability: Average (6-10) Short Term Variability: Present Position: Right Occiput Anterior Presentation: Vertex Cord Descript/Complications Cord Vessel Description: 3 Vessels Delivery Type Infant Delivery Method: Spontaneous Vaginal Anterior Shoulder: Right Episiotomy/Perineal Laceration Laceraction(s)/Extensions: No Condition of Infant Delivery 1 minute Comment: 8 5 minute Comment: 9 Notes Live male infant weight pending Condition of Infant Condition of : Living Exam: No Observed Abnormalities Resuscitation Resuscitation: N/A - Spontaneous Resp L&D Stage3 Stage Three Stage III Date: Jul 09, 2022 Pictocin Pitocin Administration mu/min: 8 Pitocin ml/hr: 8 Pitocin Administration Comment: 30 mu wide open after delivery of placenta Placenta Delivery Placenta Delivery: Spontaneous Delivery Summary Summary Estimated blood loss (mL): 350 Attending at delivery: Jeremie Lee DO Condition of Delivery Examined: Cervix Examined, Uterus Explored Post Hemorrhage: No Condition of Mother stable Condition of Infant (s) stable JEREMIE LEE DO Jul 09, 2022 16:44
[2022-07-09] MEDS ORDERED: DIBUCAINE 1% OINTMENT 28 GM TUBE TOP PRN (16:45)
[2022-07-09] MEDS ORDERED: WITCH HAZEL(TUCKS) 40 EA JAR TOP PRN (16:45)
[2022-07-09] MEDS ORDERED: TETANUS,DIPTH,PERTUSS P/F (BOOSTRIX) 0.5 ML VIAL IM ONE (16:45)
[2022-07-09] MEDS ORDERED: MEASLES,MUMPS,RUBELLA 1 EA INJ SQ ONE (16:45)
[2022-07-09] MEDS ORDERED: BENZOCAINE/MENTHOL (DERMOPLAST) 56 ML CAN TP PRN (16:45)
--- NOTE | 2022-07-09 16:51 | Discharge Inst-Women's Service ---
Discharge Inst-Women's Serv Depart Medication/Instructions New, Converted or Re-Newed RX: Transmitted to Pharmacy Final Diagnosis PPD 1 NVD Problems Reviewed?: Yes Consults/Follow Up Additional Follow Up: Yes Orders/Referrals Dr. Lee in 6 weeks Activity Activity: Activity as Tolerated Driving Instructions: No Driving for 1 Week NO SMOKING: NO SMOKING Nothing Inside Vagina: No Douching, No [place], No Tampons Diet Discharge Diet: No Restrictions Symptoms to Report to : Bleeding Excessive, Pain Increased, Fever Over 101 Degrees F, Vaginal Bleeding Increase, Questions/Concerns For Any Problems or Questions: Contact Your Physician JEREMIE LEE DO Jul 09, 2022 16:51
[2022-07-09] MEDS ORDERED: FERR325T24 PO (16:53)
[2022-07-09] MEDS ORDERED: DOCU100C37 PO (16:53)
[2022-07-09] MEDS ORDERED: BENZ78AE5 TP (16:53)
[2022-07-09] MEDS ORDERED: ACET-93 PO (16:53)
[2022-07-09] MEDS ORDERED: IBUP-844 PO (16:53)
[2022-07-09] MEDS: IBUPROFEN 600 MG (MOTRIN) TAB PO SCH ×2 (18:04→23:49)
[2022-07-09] MEDS: ACETAMINOPHEN 500 MG TAB (TYLENOL) PO SCH (18:04)
[2022-07-09] MEDS ORDERED: METHYLERGONOVINE 0.2 MG/ML (METHERGINE) AMP IM ONE (19:15)
[2022-07-09] MEDS: DOCUSATE SODIUM 100 MG (COLACE) CAP PO SCH (19:32)
[2022-07-10] MEDS: ACETAMINOPHEN 500 MG TAB (TYLENOL) PO SCH ×3 (01:57→18:06)
[2022-07-10 03:06] VITALS: BP 128/66
[2022-07-10] MEDS: IBUPROFEN 600 MG (MOTRIN) TAB PO SCH ×3 (05:46→18:06)
[2022-07-10 06:51] LABS: BASOPHILS # (AUTO) 0.1 10^3/uL (0.0-0.1); BASOPHILS % (AUTO) 0 % (0-10); EOSINOPHILS # (AUTO) 0.2 10^3/uL (0.0-0.3); EOSINOPHILS % (AUTO) 1 % (0-10); HEMATOCRIT 32 % (35-52); HEMOGLOBIN 10.8 g/dL (11.5-16.0); LYMPHOCYTES # (AUTO) 3.3 10^3/uL (1.0-4.0); LYMPHOCYTES % (AUTO) 23 % (12-44); MEAN CORPUSCULAR HEMOGLOBIN 30 pg (25-34); MEAN CORPUSCULAR HGB CONC 34 g/dL (32-36); MEAN CORPUSCULAR VOLUME 89 fL (80-99); MEAN PLATELET VOLUME 10.3 fL (9.0-12.2); MONOCYTES # (AUTO) 1.5 10^3/uL (0.0-1.0); MONOCYTES % (AUTO) 11 % (0-12); NEUTROPHILS # (AUTO) 9.2 10^3/uL (1.8-7.8); NEUTROPHILS % (AUTO) 64 % (42-75); PLATELET COUNT 314 10^3/uL (130-400); WHITE BLOOD COUNT 14.5 10^3/uL (4.3-11.0)
[2022-07-10] MEDS ORDERED: PRENATAL VITAMIN 1 EA TAB PO SCH (07:00)
[2022-07-10] MEDS ORDERED: FERROUS SULF 325 MG (IRON) TAB PO SCH (09:00)
[2022-07-10 09:20] VITALS: BP 120/68
[2022-07-10] MEDS: DOCUSATE SODIUM 100 MG (COLACE) CAP PO SCH (09:21)
--- NOTE | 2022-07-10 11:52 | Anesthesia-Regional Post-Op ---
Regional Patient Condition Mental Status: Alert, Oriented x3 Circulation: Same as Pre-Op Headache: Absent Sensation: Full Recovery Motor Block: Absent Post Op Complications Complications None Follow Up Care/Instructions Patient Instructions None needed. Anesthesia/Patient Condition Patient is doing well, no complaints, stable vital signs, no apparent adverse anesthesia problems. No complications reported per nursing. ROSANGELA MARTÍNEZ CRNA Jul 10, 2022 11:52
--- NOTE | 2022-07-10 14:46 | Postpartum Progress Note ---
Note Note Day # 1 Subjective: Patient is without complaints. Ambulating, voiding. Tolerating a regular diet without nausea or vomiting. Normal lochia. Pain is well controlled with oral pain medications. Physical Exam: General - Alert and oriented, no apparent distress Abdomen - Soft, appropriately tender to palpation, non-distended, fundus firm at umbilicus Extremities - no edema, negative Popeye's bilaterally Assessment: Post- day # 1, status post Recovering well, hemodynamically stable Acute blood loss anemia Plan: Routine care. Encourage breast feeding. Encourage ambulation. Ferrous sulfate supplementation. Plan for discharge today Vitals - Labs Vital Signs - I&O Vital Signs Date Time Temp Pulse Resp B/P (MAP) Pulse Ox O2 Delivery O2 Flow Rate FiO2 07/10/22 09:20 36.4 88 18 120/68 (85) 98 Room Air 07/10/22 03:06 36.4 76 18 128/66 (86) 96 07/09/22 23:50 37.0 87 18 120/71 (87) 98 07/09/22 19:35 36.8 76 18 137/78 (97) 97 07/09/22 18:23 83 18 116/56 (76) Room Air 07/09/22 18:08 88 18 130/62 (84) Room Air 07/09/22 17:53 76 18 130/59 (82) Room Air 07/09/22 17:38 79 18 132/61 (84) Room Air 07/09/22 17:23 36.1 81 18 124/65 (84) Room Air 07/09/22 17:08 80 18 122/75 (91) Room Air 07/09/22 16:53 74 18 129/74 (92) Room Air 07/09/22 16:40 88 18 142/76 (98) Room Air 07/09/22 16:25 81 18 143/79 (100) Room Air 07/09/22 16:10 115 18 142/81 (101) Room Air 07/09/22 15:55 83 18 134/75 (94) Room Air 07/09/22 15:40 79 18 123/77 (92) Room Air 07/09/22 15:25 36.3 71 18 112/68 (83) Room Air 07/09/22 15:10 68 18 110/68 (82) Room Air 07/09/22 14:55 69 18 116/65 (82) Room Air I & O 07/10/22 07:00 Intake Total 2350 ml Balance 2350 ml Labs Laboratory Tests 07/10/22 06:10: White Blood Count 14.5H, Red Blood Count 3.58L, Hemoglobin 10.8L, Hematocrit 32L , Mean Corpuscular Volume 89, Mean Corpuscular Hemoglobin 30, Mean Corpuscular Hemoglobin Concent 34, Red Cell Distribution Width 13.1, Platelet Count 314, Mean Platelet Volume 10.3, Immature Granulocyte % (Auto) 1, Neutrophils (%) (Auto) 64, Lymphocytes (%) (Auto) 23, Monocytes (%) (Auto) 11, Eosinophils (%) (Auto) 1, Basophils (%) (Auto) 0, Neutrophils # (Auto) 9.2H, Lymphocytes # (Auto) 3.3, Monocytes # (Auto) 1.5H, Eosinophils # (Auto) 0.2, Basophils # (Aut o) 0.1, Immature Granulocyte # (Auto) 0.2H DANIELITO SILVA DATA DESIGNER Jul 10, 2022 14:46
== END 2022-07-10 18:35 | disposition home or self-care (01) | DRG 806 ==
LOC: LDRP 05:59
PROVIDERS: ADMIT Obstetrics & Gynecology; ATTEND Obstetrics & Gynecology
PROC: 10E0XZZ Delivery of Products of Conception, External Approach (ICD-10-PCS; principal; 2022-07-09)
PROC: 10907ZC Drainage of Amniotic Fluid, Therapeutic from Products of Conception, Via Natural or Artificial Opening (ICD-10-PCS; 2022-07-09)
DX: O48.0 Post-term pregnancy (principal); D62 Acute posthemorrhagic anemia; Z37.0 Single live birth; O90.81 Anemia of the puerperium; Z3A.40 40 weeks gestation of pregnancy; Z28.310 Unvaccinated for COVID-19
CPT/HCPCS: 36415; 81000; 85025; 86780; 86850; 86900; 86901